=== PATIENT | male | born 1970 | race Caucasian/White ===

== ENCOUNTER 2016-06-18 09:38 | Emergency (ER) | payer OTHER, BC ==
[~2016-06-18] VITALS: Ht 180.3 cm; Wt 132.5 kg
[~2016-06-18 09:38] MED LIST: LISI-787 PO; OXYC-57 PO; TAMS0.4C38 PO
[2016-06-18 09:41] VITALS: TEMP 36.7; Ht 180.3 cm; Wt 132.5 kg
[2016-06-18] MEDS ORDERED: METH4PAK PO (10:29)
[2016-06-18] MEDS ORDERED: CYCL10TA6 PO (10:29)
[2016-06-18] MEDS ORDERED: OXYC1TAB3 PO (10:29)
--- NOTE | 2016-06-18 10:29 | EMERGENCY ROOM VISIT NOTE ---
History Report prepared by Joyce: Elvis Condon Under the Supervision of: Dr. Chava Mcclellan M.D. First contact with patient: 09:51 Chief Complaint: BACK PAIN Stated Complaint: LOWER BACK PAIN-WORK RELATED INJURY History of Present Illness The patient is a 45 year old male who presents to the Emergency Room with complaints of worsening lower back pain starting about 2 months ago. The patient has a history of back surgery occurring in 2008. About 2 months ago, he strained himself while running upstairs at work. He has been having worsening back pain since then. He also complains of left leg pain. He has worsening pain with lying down flat and with movement. He denies urinary/bowel incontinence, or any other complaints. Source of History: patient Onset: about 2 months ago Position: back (lower) Timing: worsening Modifying Factors (Worsening): movement, other (lying down flat) Review of Systems See HPI for pertinent positives & negatives. A total of 6 systems reviewed and were otherwise negative. Past Medical & Surgical Medical Problems: (1) Hypertension Surgical Problems: (1) History of back surgery Family History Diabetes mellitus FHx: heart disease Hypertension Kidney disease Social History Smoking Status: Never Smoker Alcohol Use: other Marital Status: Housing Status: lives with family Occupation Status: employed Current/Historical Medications Scheduled Cyclobenzaprine Hcl (Flexeril), 1 TAB PO TID Lisinopril/Hctz (Zestoretic 20MG/12.5MG), 1 TAB PO QAM Methylprednisolone (Medrol Dosepak), 1 PKT PO UD Scheduled PRN Oxycodone Immediate Rel Tab (Roxicodone Ir), 1-3 TAB PO Q4H PRN for Severe Pain Allergies Coded Allergies: Penicillins (Verified Allergy, Unknown, ITCHINESS, RASH, 06/18/16) Physical Exam Vital Signs Date Time Temp Pulse Resp B/P Pulse Ox O2 Delivery O2 Flow Rate FiO2 06/18/16 10:55 77 18 120/101 97 06/18/16 09:41 36.7 91 18 136/81 97 Room Air Physical Exam GENERAL: Patient is in mild distress, uncomfortable with sitting up HEENT: No acute trauma, normocephalic atraumatic, mucous membranes moist, no nasal congestion, no scleral icterus. NECK: No stridor, no adenopathy, no meningismus, trachea is midline. LUNGS: No dyspnea. Clear to auscultation and equal bilaterally. No wheeze, no rhonchi. HEART: Regular rate and rhythm. No murmurs, rubs, gallops appreciated. BACK: No midline tenderness, no CVA tenderness. Old surgical scar of lumbar. Back pain with raise of left leg. EXTREMITIES: Normal motion all extremities, no cyanosis, no edema. Normal pulses. NEUROLOGIC: Alert and oriented, no acute motor or sensory deficits, no focal weakness, cranial nerves grossly intact. SKIN: No rash, no jaundice, no diaphoresis. Medical Decision & Procedures ER Provider Diagnostic Interpretation: X ray results are stated below per my interpretation and the radiologist's interpretation. LUMBAR SPINE 3 VIEWS CLINICAL HISTORY: Left-sided sciatica. FINDINGS: AP, lateral, and coned-down views of lumbar spine are correlated with abdominal CT dated 10/10/2015. The skeletal structures are well mineralized. There is no radiographic evidence of fracture or malalignment. Vertebral body height and alignment are maintained throughout the lumbar spine. There is evidence of discectomy at L4-L5 with laminectomy and posterior fusion from L3 to L5. Interposition bone graft is noted. The orthopedic hardware appears intact. There is straightening of lumbar lordosis. There is loss of height at the L4-L5 discectomy level. The disc spaces are otherwise preserved. The transverse processes are intact as imaged. The partially visualized bony pelvis appears intact. There is a nonobstructed abdominal bowel gas pattern. IMPRESSION: 1. No acute bony abnormality is seen involving the lumbar spine. 2. Postoperative change as above. Electronically signed by: Abelino William M.D. 06/18/2016 10:29 AM Dictated Date/Time: 06/18/2016 10:27 AM ED Course 0951: The patient was evaluated in room B08. A complete history and physical exam was performed. 1045: Reevaluated the patient. Discussed results and discharge instructions: He verbalized understanding and agreement. The patient is ready for discharge. Medical Decision Differential: Musculoskeletal, Disc Herniation, Fracture, Cord Compression, Discitis, Infectious, Aortic Pathology, Renal Colic, UTI/Pyelonephritis, Acute Exacerbation of Chronic Pain, Sciatica, Cauda Equina, amongst other pathologies entertained. 45 yr old male arrives with complaint of low back pain gradually worsening over the last 2 months after trauma from jumping down stairs. History of surgery 7- 8 yrs ago of low back. Sciatica symptoms without neuro deficits nor loss bowel/ bladder. As acutely worsening last few days seems reasonable to try steroids. Tolerated narcotics in past well and understands risks. Flexeril for lesser pain. Has appointment with Spinal Surg on . Imaging without acute findings. RTED if worsening or other concerns that were reviewed with patient. [place] Drug Monitoring Program Search Results: patient reviewed within database Drug Monitoring Findings: He had 2 narcotic prescriptions 10 months ago. Impression Primary Impression: Strain of lumbar region Additional Impression: Left-sided low back pain with left-sided sciatica Scribe Attestation The scribe's documentation has been prepared under my direction and personally reviewed by me in its entirety. I confirm that the note above accurately reflects all work, treatment, procedures, and medical decision making performed by me. Departure Information Dispostion Home / Self-Care Prescriptions Cyclobenzaprine Hcl (FLEXERIL) 10 Mg Tab 1 TAB PO TID for Pain, #30 TAB Prov: Chava Mcclellan M.D. 06/18/16 Oxycodone Immediate Rel Tab (ROXICODONE IR) 5 Mg Tab 1-3 TAB PO Q4H Y for Severe Pain, #25 TAB Prov: Chava Mcclellan M.D. 06/18/16 Methylprednisolone (MEDROL DOSEPAK) 4 Mg Dominic 1 PKT PO UD for 6 Days, #1 PKT Prov: Chava Mcclellan M.D. 06/18/16 Referrals Ananda DuttonD.O. Forms HOME CARE DOCUMENTATION FORM, IMPORTANT VISIT INFORMATION Patient Instructions ED Sciatica, [facility] Additional Instructions You have received a narcotic pain medication prescription. These medications may cause drowsiness and should not be used with other sedative medications. Do not drive, drink alcohol, perform dangerous activities, nor make important decisions after taking these medications. behavioral therapy coordinator use or inappropriate use may lead to addiction. Problem Qualifiers Primary Impression: Strain of lumbar region Encounter type: initial encounter Qualified Codes: S39.012A - Strain of muscle, fascia and tendon of lower back, initial encounter Additional Impression: Left-sided low back pain with left-sided sciatica Chronicity: acute Qualified Codes: M54.42 - Lumbago with sciatica, left side
[2016-06-18 10:55] VITALS: BP 120/101; PULSE 77; O2SAT 97
[2016-07-09] MEDS ORDERED: OXYC1TAB3 PO (13:39)
[2016-07-13] MEDS ORDERED: RXC5 PO (07:27)
== END 2016-06-18 10:55 | disposition home or self-care (01) ==
LOC: C.EDB 09:40
DX: S39.012A Strain of muscle, fascia and tendon of lower back, initial encounter (principal); M54.42 Lumbago with sciatica, left side; X50.0XXA Overexertion from strenuous movement or load, initial encounter; Y99.0 Civilian activity done for income or pay; I10 Essential (primary) hypertension; Z83.3 Family history of diabetes mellitus; Z82.49 Family history of ischemic heart disease and other diseases of the circulatory system; Z79.899 Other long term (current) drug therapy

== ENCOUNTER → 2016-07-09 | Outpatient (CLI) | payer BC, OTHER ==
[~2016-07-09] MED LIST changes: +GLIP5TAB11 PO; +METF1000 PO; -OXYC-57 PO; +OXYC1TAB3 PO; +RXC5 PO; -TAMS0.4C38 PO
--- NOTE | 2016-07-09 09:50 | DIAGNOSTIC IMAGING REPORT ---
CHEST 2 VIEWS ROUTINE HISTORY: Preop. COMPARISON: Chest 01/17/2016. FINDINGS: The lungs are clear. Cardiac silhouette is normal in size. No pleural effusions. No pneumothorax. IMPRESSION: No acute process. Electronically signed by: Eddie Siddiqui M.D. 07/09/2016 9:49 AM Dictated Date/Time: 07/09/2016 9:48 AM
[2016-07-09 10:13] LABS: BASO % 0.4 %; BASO ABS # 0.03 K/uL (0-0.2); COMPLETE YES; EOS % 2.1 %; HEMATOCRIT 47.1 % (42-52); IG% 0.3 %; LYMPH % 29.8 %; LYMPH ABS # 2.17 K/uL (1.2-3.4); MEAN CELL VOLUME 83.2 fL (80-100); MEAN CORPUSCULAR HEMOGLOBIN 29.9 pg (25-34); MEAN CORPUSCULAR HGB CONC 35.9 g/dl (32-36); MEAN PLATELET VOLUME 10.9 fL (7.4-10.4); MONO % 8.5 %; NEUT % 58.9 %; PLATELET COUNT 237 K/uL (130-400); RED BLOOD COUNT 5.66 M/uL (4.7-6.1); WHITE BLOOD COUNT 7.29 K/uL (4.8-10.8)
[2016-07-09 10:19] LABS: BLOOD UREA NITROGEN 15 mg/dl (7-18); BUN/CREATININE RATIO 13.6 (10-20); CALCIUM 9.8 mg/dl (8.5-10.1); CARBON DIOXIDE 29 mmol/L (21-32); CHLORIDE 99 mmol/L (98-107); GLUCOSE 316 mg/dl (70-99); POTASSIUM 4.1 mmol/L (3.5-5.1); SODIUM 137 mmol/L (136-145)
[2016-07-09 10:29] LABS: BETA-HYDROXYBUTYRATE 1.36 mg/dL (0.2-2.81)
[2016-07-09 12:11] LABS: URINE APPEARANCE CLEAR (CLEAR); URINE BILIRUBIN NEG (NEG); URINE COLOR YELLOW; URINE EPITHELIAL CELL AUTO 0-5 /lpf (0-5); URINE NITRITE NEG (NEG); URINE PH 5.5 (4.5-7.5); URINE SPECIFIC GRAVITY 1.031 (1.000-1.030); UROBILINOGEN NEG (NEG)
[2016-07-09 12:16] LABS: MANUAL MICROSCOPIC REQUIRED? NO; REVIEW REQ? NO
== END | disposition home or self-care (01) ==
LOC: C.LAB 08:52
PROVIDERS: ATTEND Orthopaedic Surgery Orthopaedic Surgery of the Spine
DX: M51.26 Other intervertebral disc displacement, lumbar region (principal)

== ENCOUNTER 2016-07-12 08:08 | Inpatient (IN) | payer OTHER, BC ==
[2016-07-09 13:30] VITALS: BMI 39.0
[~2016-07-12] VITALS: Ht 180.3 cm; Wt 129.6 kg
--- NOTE | 2016-07-12 07:28 | History & Physical Bridge Note ---
H&P Re-Evaluation Bridge Note: I have examined the patient, reviewed the History & Physical and in the interval since the performance of the History & Physical I have noted the following changes of clinical significance: No changes noted
[~2016-07-12 08:08] MED LIST changes: +CEFAZOLIN 3000 MG/65 ML D5W IV SCH; -GLIP5TAB11 PO; -METF1000 PO; -RXC5 PO
[2016-07-12 08:59] VITALS: BP 125/87; PULSE 90; TEMP 36.8; BMI 39.0
[2016-07-12] MEDS ORDERED: GLYCOPYRROLATE INJ 0.2 MG/ML VIAL ONE (09:04)
[2016-07-12] MEDS ORDERED: PHENYLEPHRINE HCL INJ 10 MG/ML VIAL ONE (09:04)
[2016-07-12] MEDS ORDERED: ROCURONIUM BROMIDE 10 MG/ML 5 ML VIAL ONE ×2 (09:04→11:26)
[2016-07-12] MEDS ORDERED: MIDAZOLAM HCL 1 MG/ML 2ML VIAL ONE (09:04)
[2016-07-12] MEDS ORDERED: PROPOFOL IV EMULSION 10 MG/ML 20 ML VIAL IV ONE (09:04)
[2016-07-12] MEDS ORDERED: LIDOCAINE HCL 2% 2 ML VIAL (20MG/ML) ONE (09:04)
[2016-07-12] MEDS ORDERED: DEXAMETHASONE SOD INJ 4 MG/ML VIAL ONE (09:04)
[2016-07-12] MEDS ORDERED: FENTANYL CITRATE INJ 50 MCG/1 ML 2 ML VIAL ONE (09:04)
[2016-07-12] MEDS ORDERED: ONDANSETRON INJ 2 MG/ML 2 ML VIAL ONE (09:04)
[2016-07-12] MEDS ORDERED: EpHEDrine SULFATE INJ 50 MG/ML AMP ONE (09:04)
[2016-07-12] MEDS ORDERED: SUCCINYLCHOLINE CHLORIDE 20 MG/ML 10 ML VIAL IV ONE (09:04)
[2016-07-12] MEDS ORDERED: NEOSTIGMINE METHYLSULFATE 5 MG/5 ML SYR ONE (09:04)
--- NOTE | 2016-07-12 09:29 | History and Physical ---
History & Physical Date Jul 12, 2016. Chief Complaint back and leg pain History of Present Illness The patient is a 45 year old male with complaints of Past Medical/Surgical History Medical Problems: (1) Hypertension Surgical Problems: (1) History of back surgery Additional History Hepatic Disease: No Endocrine Disorder: No Kidney Disease: No Hypertension: No Heart Disease: No Bleeding Tendencies: No Infectious Diseases: No Allergies Coded Allergies: Penicillins (Verified Allergy, Intermediate, ITCHINESS, RASH, 07/12/16) Home Medications Scheduled Lisinopril/Hctz (Zestoretic 20MG/12.5MG), 1 TAB PO QAM Scheduled PRN Oxycodone Ir (Roxicodone Ir), 5 MG PO Q4H PRN for Severe Pain Physical Examination Skin: warm/dry, no rash Eyes: normal inspection, EOMI, sclerae normal ENT: normal ENT inspection, pharynx normal Head: normocephalic, atraumatic Neck: supple, no adenopathy, trachea midline Respiratory/Chest: lungs clear, normal breath sounds, no respiratory distress Cardiovascular: regular rate, rhythm, no edema, no murmur Abdomen / GI: normal bowel sounds, non tender Back: normal inspection Extremities: normal inspection, normal range of motion Neurologic/Psych: no motor/sensory deficits, alert, normal reflexes, oriented x 3 Diagnosis lumbar stenosis Plan of Treatment removal instrumentation L3-L5, fusion decompression L3-4
[2016-07-12] MEDS ORDERED: NovoLIN-R INSULIN PER UNIT CHARGE ONE ×6 (09:41→15:27)
[2016-07-12] MEDS ORDERED: MoRPHine SULFATE 10 MG/ML CARP/VIAL IV PRN (09:45)
[2016-07-12] MEDS ORDERED: INSULIN HUMAN REGULAR IV ONE ×3 (09:45→13:45)
[2016-07-12] MEDS ORDERED: MEPERIDINE HCL 25 MG/ML CARP IV PRN (09:45)
[2016-07-12] MEDS ORDERED: ATROPINE SULFATE 0.1 MG/ML 5ML SYR IV PRN (09:45)
[2016-07-12] MEDS ORDERED: LABETALOL HCL IV 5 MG/ML 20ML IV PRN (09:45)
[2016-07-12] MEDS ORDERED: NALOXONE HCL 0.4 MG/1 ML VIAL/CARP IV PRN ×3 (09:45→12:45)
[2016-07-12] MEDS ORDERED: FLUMAZENIL 0.1 MG/1 ML 10 ML VIAL IV PRN (09:45)
[2016-07-12] MEDS ORDERED: ONDANSETRON INJ 2 MG/ML 2 ML VIAL IV PRN ×2 (09:45→12:45)
[2016-07-12] MEDS ORDERED: EpHEDrine SULFATE INJ 50 MG/ML AMP IV PRN (09:45)
[2016-07-12] MEDS ORDERED: PHENYLEPHRINE 100MCG/ML 5ML SYR IV PRN (09:45)
[2016-07-12] MEDS ORDERED: BUPIVACAINE/EPINEPHRINE 0.5% MPF 1:200,000 30 ML VIAL ONE (09:49)
[2016-07-12] MEDS ORDERED: BACITRACIN 50000 UNIT VIAL ONE (09:49)
[2016-07-12] MEDS ORDERED: SODIUM CHLORIDE 0.9% PF 50 ML VIAL ONE (09:49)
[2016-07-12] MEDS ORDERED: SCOPOLAMINE 1.5 MG TDSY TD ONE (09:53)
[2016-07-12] MEDS ORDERED: NURSING VERBAL MED ORDER ONE ×3 (10:00→15:30)
[2016-07-12] MEDS ORDERED: HYDROmorphone INJ 2 MG/ML SYR/VIAL ONE (10:29)
[2016-07-12] MEDS ORDERED: FLOSEAL HEMOSTATIC MATRIX 10ML TOP ONE (12:07)
--- NOTE | 2016-07-12 12:18 | DIAGNOSTIC IMAGING REPORT ---
Lumbar spine LUMBAR SPINE 2 OR 3 VIEW CLINICAL HISTORY: L3-L5 REMOVAL/L3-L4 DECOMPRESSION/FUSION hardware removal. Laminectomy. Fusion. TECHNIQUE: Image intensifier COMPARISON STUDY: None FINDINGS: Findings of the low lumbar laminectomy and fusion. IMPRESSION: Low lumbar laminectomy and fusion. Electronically signed by: Nabor Ospina M.D. 07/12/2016 12:16 PM Dictated Date/Time: 07/12/2016 12:16 PM
[2016-07-12] MEDS ORDERED: SODIUM CHLORIDE 0.9% 1000ML 1,000 ML IV SCH (12:33)
--- NOTE | 2016-07-12 12:33 | [facility] Post Operative Brief Note ---
Immediate Operative Summary Operative Date Jul 12, 2016. Pre-Operative Diagnosis Lumbar stenosis Post-Operative Diagnosis Same as pre-operative diagnosis Procedure(s) Performed Transforaminal Lumbar Interbody Fusion L3-L4 Lumbar Decompression/Laminectomy, Discectomy, Placement of Interbody Spacer, Pedicle Screw Fixation, Application of Bone Morphogenetic Protein, and Posteriolateral Gutter Fusion, L3-L5 Hardware Removal, Interbody Fusion with Application of Interbody Cage L3-L4; [place] Surgeon Dr. Ananda Dutton Utility Bill Complaints Investigator Surgeon(s) None Estimated Blood Loss 100ml Findings stenosis Specimens A: Explanted hardware lumbar spine L3-5
[2016-07-12] MEDS ORDERED: FAMOTIDINE 20 MG TAB PO PRN (12:45)
[2016-07-12] MEDS ORDERED: METOCLOPRAMIDE HCL INJ 5 MG/ML 2 ML VIAL IV PRN (12:45)
[2016-07-12] MEDS ORDERED: DO NOT ADMINISTER PNEUMOCOCCAL VACCINE PRN ×2 (12:45)
[2016-07-12] MEDS ORDERED: SOD PHOSPHATE/SOD BIPHOSPHATE ENEMA 132 ML BTL PR PRN (12:45)
[2016-07-12] MEDS ORDERED: DO NOT ADMINISTER FLU VACCINE PRN ×3 (12:45)
[2016-07-12] MEDS ORDERED: PROMETHAZINE HCL INJ 12.5 MG in SODIUM CHLORIDE 0.9% 50ML 50 ML IV PRN (12:45)
[2016-07-12] MEDS ORDERED: hydrOXYzine HCL 25 MG TAB PO PRN (12:45)
[2016-07-12] MEDS ORDERED: ALUMINUM/MAGNESIUM SUSP 30 ML UDC PO PRN (12:45)
[2016-07-12] MEDS ORDERED: LORAZEPAM INJ 0.5 MG in SYRINGE 0 ML IV PRN (12:45)
[2016-07-12] MEDS ORDERED: LORAZEPAM 0.5 MG TAB PO PRN (12:45)
[2016-07-12] MEDS ORDERED: MAGNESIUM HYDROXIDE SUSP 30 ML UDC PO PRN (12:45)
[2016-07-12] MEDS ORDERED: ACETAMINOPHEN IV 100 ML IV PRN (12:45)
[2016-07-12] MEDS ORDERED: BISACODYL 10 MG SUPP PR PRN (12:45)
[2016-07-12] MEDS ORDERED: ACETAMINOPHEN 500 MG TAB PO PRN (12:45)
--- NOTE | 2016-07-12 13:02 | OPERATIVE REPORT ---
DATE OF OPERATION: 07/12/2016 PREOPERATIVE DIAGNOSES: Spinal stenosis and nonunion, L3-L4. POSTOPERATIVE DIAGNOSES: Same. PROCEDURES PERFORMED: 1. Removal of posterior segmental instrumentation, L3-L4 and L4-L5. 2. Exploration of fusion, L3-L4 and L4-L5. 3. Revision decompression, medial facetectomies, and foraminotomies, L3-L4. 4. Posterior spinal fusion, L3-L4. 5. Placement of posterior instrumentation using Orthros rods and screws, L3-L4. 6. Interbody fusion, L3-L4. 7. Placement of PEEK cage, 14 x 26 mm at L3-L4. 8. Placement of locally harvested morselized autograft in the posterior gutters. 9. Placement of Infuse collagen sponge combined with Mastergraft in the posterior gutters and Ann bone grafting in the interbody space. SURGEON: Dr. Ananda Dutton. NUT SHELLER: None. ANESTHESIA: General. DISPOSITION: The patient awakened and taken to PACU in stable condition. HISTORY OF PATIENT'S PROBLEMS: This is a 45-year-old male who presents with above-mentioned diagnoses. After failing an extensive course of nonoperative care, he elected to go above-mentioned procedures. Risks, benefits, pros, cons, and alternatives were outlined in detail preoperatively. DESCRIPTION OF PROCEDURE: The patient was met with preoperatively, case discussed and all questions were addressed. At that point, the patient was taken back to operative suite and after undergoing successful general intubation by the department of anesthesia, he was placed in prone position on Bob table atop Eric frame. All bony prominences were well padded and the eyes were inspected to ensure there was no external pressure placed upon them. At this point, lumbar spine was prepped and draped in normal sterile fashion. Sharp dissection with the assistance of Bovie cautery performed down to and exposing the remaining lamina and instrumentation at L3, L4, and L5 level bilaterally. I then proceeded to remove the hardware bilaterally exploring the fusion mass noting continue motion across L3-L4 level. There was a solid fusion at the L4-L5 level. Revision complete laminectomy of L3 was performed including medial facetectomies and foraminotomies. Pedicle screws then placed in L3 and L4 bilaterally with assistance of fluoroscopy and appropriately sized vince provisionally placed. Through a transforaminal approach on the left, a complete diskectomy was performed, endplates curetted to subcortical bleeding bone and a 14 x 26 mm PEEK cage filled with Ann bone grafting tapped into position. The rods were then compressed, locked into final position bilaterally and transverse processes of L3-L4 burred to subcortical bleeding bone. Infuse collagen sponge combined with Mastergraft and locally harvested morselized autograft was placed in the posterior lateral gutters. A 7 flat ZACH drain was inserted. Incision was closed with 1-0 Vicryl in the fascia, 2-0 Vicryl subcutaneously, and 4-0 Monocryl for final skin closure. Steri-Strips and sterile dressing placed. The patient was awakened and taken to PACU in stable condition. I attest to the content of the Intraoperative Record and any orders documented therein. Any exceptio ns are noted below.
[2016-07-12] MEDS ORDERED: HYDROmorphone HCL 0.5MG/ML 50 ML CASSETTE ONE (13:10)
[2016-07-12] MEDS: HYDROmorphone INJ 1 MG/ML SYR IV PRN ×2 (13:15→13:35)
--- NOTE | 2016-07-12 15:52 | Anesthesiology Progress Note ---
Anesthesia Post Op Note Date & Time Jul 12, 2016 at 15:46 Vital Signs Pain Intensity: 4 Vital Signs Past 12 Hours Date Time Temp Pulse Resp B/P Pulse Ox O2 Delivery O2 Flow Rate FiO2 07/12/16 15:20 86 16 89/48 94 Nasal Cannula 4 07/12/16 15:10 36.4 87 16 78/45 93 Nasal Cannula 4 07/12/16 15:00 84 17 92/50 93 Nasal Cannula 4 07/12/16 14:50 90 18 88/47 93 Nasal Cannula 4 07/12/16 14:40 83 19 85/46 93 Nasal Cannula 4 07/12/16 14:30 95 18 93/43 93 Nasal Cannula 4 07/12/16 14:20 82 18 91/43 93 Nasal Cannula 4 07/12/16 14:10 92 19 97/47 93 Nasal Cannula 4 07/12/16 14:00 74 17 92/47 94 Nasal Cannula 4 07/12/16 13:50 76 17 90/47 94 Nasal Cannula 4 07/12/16 13:40 87 18 103/49 94 Nasal Cannula 4 07/12/16 13:30 69 18 101/50 92 Nasal Cannula 4 07/12/16 13:20 77 19 101/50 96 Mask 10 07/12/16 13:10 81 18 106/50 98 Mask 10 07/12/16 13:00 76 18 101/47 98 Mask 10 07/12/16 12:54 36.3 87 16 92/54 98 Mask 10 07/12/16 08:59 36.8 90 18 125/87 Room Air Notes Mental Status: alert / awake / arousable, participated in evaluation Pt Amnestic to Procedure: Yes Nausea / Vomiting: adequately controlled Pain: adequately controlled Airway Patency, RR, SpO2: stable & adequate BP & HR: stable & adequate, see Notes Hydration State: stable & adequate Anesthetic Complications: no major complications apparent The patient was noted to have a BSG of 293 preoperatively. He was given 5 unit regular insulin IV. The patient's BSG was checked intraoperatively and found to be 256. He was given another six units regular insulin IV. In the PACU, his first BSG was 301. He was given 8 units regular insulin IV. On recheck it was 298. He was given 10 units regular insulin IV. The following BSG was 302. He was given 15 units regular insulin IV. The following BSG was 305. He was given another 15 units IV. The patient was slightly hypotensive with SBP in the 80-90s. His other vital signs have been stable. An H/H, hgba1c, and electrolytes were ordered. Dr. Hennessy came to evaluate the patient and will continue to treat his hyperglycemia on the floor.
[2016-07-12 15:55] LABS: HEMATOCRIT 38.6 % (42-52)
[2016-07-12] MEDS ORDERED: GLUCOSE 10 TABS/TUBE PO PRN (16:00)
[2016-07-12] MEDS ORDERED: DEXTROSE 50% 50 ML SYR IV PRN (16:00)
[2016-07-12] MEDS ORDERED: GLUCOSE 40% GEL 15 GM TUBE PO PRN (16:00)
[2016-07-12] MEDS ORDERED: GLUCAGON FOR INJ 1 MG VIAL SQ PRN (16:00)
[2016-07-12] MEDS ORDERED: PHARMACY GLYCEMIC MGMT CONSULT SCH (16:09)
[2016-07-12 16:17] LABS: CALCIUM 8.5 mg/dl (8.5-10.1); CREATININE 1.9 mg/dl (0.60-1.40); POTASSIUM 3.5 mmol/L (3.5-5.1)
[2016-07-12] MEDS ORDERED: PHARMACY GLYCEMIC MGMT CONSULT STA (16:26)
--- NOTE | 2016-07-12 16:30 | Pharmacy Progress Note ---
Glycemic Control Intl Consult Date of Service Jul 12, 2016. Scope Glycemic Pharmacist consulted by Dr Hennessy on 07/12/16 for glycemic control and to write orders per [facility] inpatient glycemic control protocol Objective Weight (Kilograms): 129.55 Accuchecks BSG (last 24hrs): Test 07/12/16 09:13 07/12/16 11:42 07/12/16 12:54 07/12/16 14:03 Bedside Glucose 293 mg/dl (70-99) 256 mg/dl (70-99) 301 mg/dl (70-99) 298 mg/dl (70-99) Test 07/12/16 14:37 07/12/16 15:14 07/12/16 15:45 Bedside Glucose 302 mg/dl (70-99) 305 mg/dl (70-99) Recent Pertinent Medications Outpatient Anti-diabetic Regimen: * none * A1c = pending The patient is currently receiving: * Regular insulin - a total of 44 units IV in PACU/OR Today for BSGs as above Risk Factors for Insulin Resistance: * Steroids: Dexamethasone 4mg IV in OR, and 6mg IV Q8H x 3 doses post op * Infection: Clindamycin post op x 24 hours * Recent Surgery: S/p lumbar fusion 07/12/16 * Diet: Regular Assessment & Plan ASSESSMENT: * 45 year old male, no previous diagnosis of DM or A1c, admitted for lumbar fusion, experiencing hyperglycemia in PACU and OR, treated with a total of 44 units of IV regular insulin over the past 8 hours, with blood sugars in the 293- 305mg/dL range * Patient on IV steroids which is likely the biggest contributor to hyperglycemia, will start patient on a weight based CF and CR, and check blood sugars twice overnight as IV steroids are ATC * Also give patient a one time Lantus dose today and follow-up tomorrow with further Lantus dosing, depending on BSGs and A1c. * Patient diet is currently ordered as regular, may need to adjust to Type 2 DM diet depending on A1c and carbs consumed. * ADA & AACE recommend a goal blood sugar range 140-180 mg/dl for the majority of critically ill & non-critically ill patients. However, more stringent targets may be selected in individual cases. I will start patient on a 120-160mg /dl goal range for a young patient with no previous diagnosis of DM. This can be further tightened tomorrow to 100-140mg/dl after we see how patient responds to insulin, as he is insulin naive. PLAN FOR INPATIENT GLYCEMIC CONTROL: * Basal insulin with LANTUS 15 units SQ x 1 NOW * Correctional Insulin with NOVOLOG per scale ACHS and at 00:00 and 04:00 overnight tonight * Goal Range: Low 120 mg/dL - High 160 mg/dL * Correction Factor: 18 mg/dL/unit * Nutritional / Prandial insulin per carb ratio of 1 unit per 6 grams CHO consumed * If blood sugar remains over 300mg/dL at 2100 - will give IV insulin and tighten CF and CR further * Please note that the plan above was derived based on current level of insulin resistance and hospital stress. These recommendations are appropriate for inpatient admission only. Plan of care upon discharge will need to be reassessed to avoid potential outpatient hypo/hyperglycemia. Thank you.
[2016-07-12 16:40] LABS: BETA-HYDROXYBUTYRATE 1.26 mg/dL (0.2-2.81)
[2016-07-12] MEDS ORDERED: INSULIN GLARGINE SOLOSTAR 100 UNITS/ML 3 ML PEN SC SCH (17:00)
[2016-07-12 17:55] VITALS: O2SAT 97
[2016-07-12] MEDS: HYDROmorphone HCL 0.5MG/ML 50 ML CASSETTE IV PRN ×2 (17:58→23:12)
[2016-07-12 18:25] VITALS: BP 103/63; PULSE 95; TEMP 36.4; O2SAT 100
[2016-07-12] MEDS: SODIUM CHLORIDE 0.9% 1000ML 1,000 ML IV SCH ×2 (19:01→19:10)
[2016-07-12] MEDS: INSULIN ASPART 100 UNITS/ML 3 ML PEN SC SCH ×2 (19:34→21:11)
[2016-07-12 19:43] VITALS: BP 117/73; PULSE 98; TEMP 36.3; O2SAT 99
--- NOTE | 2016-07-12 20:55 | Medical Consult ---
Consultation Date of Consultation: Jul 12, 2016. Attending Physician: Ananda Dutton D.O. Reason for Consultation: Hyperglycemia, post op hypotension History of Present Illness Pt admitted to orthopedic service for lumbar surgery and consulted to our services for hyperglycemia Pt noted to have glucose readings in 300s. Pt did undergo surgery and also did receive decadron. No hx of DM but pt reports parents and grandparents all had it. Pt denies any neuropathy, weakness but does state he drinks up to 4 quarts of water a night and does have polyuria. Pt only has hx of HTN. Past Medical/Surgical History Medical Problems: (1) Left-sided low back pain with left-sided sciatica Status: Acute (2) Strain of lumbar region Status: Acute Family History Diabetes mellitus FHx: heart disease Hypertension Kidney disease Social History Smoking Status: Never Smoker Marital Status: Housing Status: lives with family Occupation Status: employed Allergies Coded Allergies: Penicillins (Verified Allergy, Intermediate, ITCHINESS, RASH, 07/12/16) Current Inpatient Medications Current Inpatient Medications Medications (Trade) Dose Ordered Sig/Aki Route Start Time Stop Time Status Last Admin Dose Admin Hydromorphone HCl 0.5 mg 0.5 mg Q5M PRN IV 07/12/16 09:45 07/13/16 14:45 07/12/16 13:35 0.5 MG Clindamycin Phosphate 600 mg/ Dextrose 54 ml @ 100 mls/hr Q8H IV 07/12/16 20:00 07/13/16 04:33 Dexamethasone Sodium Phosphate 6 mg/Syringe 1.5 ml @ 1 mls/min Q8H IV 07/12/16 20:00 07/13/16 12:02 Promethazine HCl/ Sodium Chloride (Phenergan Inj/ Nss 50ml) 50.5 ml @ 202 mls/hr Q6H PRN IV 07/12/16 12:45 08/11/16 12:44 Ondansetron HCl (Zofran Inj) 4 mg Q6H PRN IV 07/12/16 12:45 08/11/16 12:44 Metoclopramide HCl (Reglan Inj) 10 mg Q6H PRN IV 07/12/16 12:45 08/11/16 12:44 Lorazepam 0.5 mg 0.5 mg Q8H PRN PO 07/12/16 12:45 08/11/16 12:44 Lorazepam/Syringe (Ativan Inj/ Syringe) 0.25 ml @ 1 mls/min Q8H PRN IV 07/12/16 12:45 08/11/16 12:44 Pneumococcal Polysaccharide Vaccine 1 ea PRN PRN N/A 07/12/16 12:45 08/11/16 12:44 Influenza Virus Vacc Triv Types A&B 1 ea PRN PRN N/A 07/12/16 12:45 08/11/16 12:44 Polyethylene (Miralax Powder Packet) 17 gm Q6 PO 07/14/16 06:00 08/13/16 05:59 Bisacodyl (Dulcolax Supp) 10 mg DAILY PRN HI 07/12/16 12:45 08/11/16 12:44 Magnesium Hydroxide (Milk Of Magnesia Susp) 30 ml DAILY PRN PO 07/12/16 12:45 08/11/16 12:44 Hydromorphone HCl (Dilaudid Inj) 0.5 mg Q3H PRN IV 07/13/16 06:00 07/27/16 05:59 Oxycodone HCl 5-10mg prn moderate to sev... Q4H PRN PO 07/13/16 06:00 07/27/16 05:59 Sodium Chloride (Nss 1000ml) 1,000 ml @ 150 mls/hr Q6H40M IV 07/12/16 12:33 08/11/16 12:32 07/12/16 19:10 150 MLS/HR Acetaminophen 1000 mg 1,000 mg Q8H PRN PO 07/12/16 12:45 08/11/16 12:44 Acetaminophen (Ofirmev Iv) 100 ml @ 400 mls/hr Q8H PRN IV 07/12/16 12:45 08/11/16 12:44 Naloxone HCl (Narcan Inj) 0.1 mg Q5M PRN IV 07/12/16 12:45 08/11/16 12:44 Senna/Docusate Sodium (Senokot S Tab) 2 tab HS PO 07/12/16 21:00 08/11/16 20:59 Sodium Biphosphate/ Sodium Phosphate (Fleet Enema) 132 ml ONE PRN HI 07/12/16 12:45 08/11/16 12:44 Hydroxyzine HCl (Vistaril Tab) 25 mg Q8H PRN PO 07/12/16 12:45 08/11/16 12:44 Al Hydroxide/Mg Hydroxide (Maalox Susp) 30 ml Q6H PRN PO 07/12/16 12:45 08/11/16 12:44 Famotidine (Pepcid Tab) 20 mg Q12 PRN PO 07/12/16 12:45 08/11/16 12:44 Diphenhydramine HCl (Benadryl Cap) 25 mg Q6H PRN PO 07/12/16 12:45 08/11/16 12:44 Miscellaneous Information (Discontinue CRYSTAL GRINDER) 1 ea TODAY@0600 N/A 07/13/16 06:00 07/13/16 06:01 Naloxone HCl (Narcan Inj) 0.1 mg Q5M PRN IV 07/12/16 12:45 07/13/16 06:00 Hydromorphone HCl 25 mg 25 mg PRN PRN IV 07/12/16 12:45 07/13/16 06:00 07/12/16 17:58 25 MG Sodium Chloride (Nss 1000ml) 1,000 ml @ 15 mls/hr Q24H IV 07/12/16 12:33 07/13/16 06:00 HCTZ/Lisinopril (Prinzide 20-12.5MG Tab) 1 tab QAM PO 07/13/16 09:00 08/12/16 08:59 Future Hold Hydromorphone HCl (Dilaudid Inj) 1 mg Q3H PRN IV 07/13/16 06:00 07/27/16 05:59 Insulin Aspart (novoLOG ASPART) SLIDING SCALE If C... ACHS SC 07/12/16 17:00 08/11/16 16:59 07/12/16 19:34 13 UNITS Glucose (Glucose 40% Gel) 15-30 GRAMS 15 GRAMS... UD PRN PO 07/12/16 16:00 08/11/16 15:59 Glucose (Glucose Chew Tab) 4-8 Tablets 4 Tabl... UD PRN PO 07/12/16 16:00 08/11/16 15:59 Dextrose (Dextrose 50% 50ML Syringe) 25-50ML OF 50% DW IV FOR... UD PRN IV 07/12/16 16:00 08/11/16 15:59 Glucagon (Glucagon Inj) 1 mg UD PRN SQ 07/12/16 16:00 08/11/16 15:59 Miscellaneous Information (Consult Glycemic Management Pharmacy) 1 ea UD N/A 07/12/16 16:09 08/11/16 16:08 Insulin Aspart (novoLOG ASPART) SLIDING SCALE If C... 0000,0400 SC 07/13/16 00:00 08/12/16 00:00 Review of Systems Constitutional: No chills, No fever Respiratory: No cough, No sputum Cardiovascular: No chest pain, No orthopnea Abdomen: No nausea, No pain, No vomiting Musculoskeletal: No joint pain, No muscle pain Genitourinary - Male: No dysuria, No hematuria Neurologic: No paralysis, No weakness Physical Exam Date Time Temp Pulse Resp B/P Pulse Ox O2 Delivery O2 Flow Rate FiO2 07/12/16 19:43 36.3 98 20 117/73 99 Nasal Cannula 4.0 07/12/16 18:25 36.4 95 18 103/63 100 Nasal Cannula 4.0 07/12/16 17:55 97 Nasal Cannula 4.0 07/12/16 17:55 Nasal Cannula 4.0 07/12/16 17:45 90 13 102/63 96 Nasal Cannula 4 07/12/16 17:30 84 13 109/61 95 Nasal Cannula 4 07/12/16 17:15 80 18 107/61 95 Nasal Cannula 4 07/12/16 17:00 76 20 90/57 95 Nasal Cannula 4 07/12/16 16:45 36.2 93 16 104/57 95 Nasal Cannula 4 07/12/16 16:30 89 16 98/53 95 Nasal Cannula 4 07/12/16 16:20 99 21 94/53 94 Nasal Cannula 4 07/12/16 16:10 91 16 100/55 95 Nasal Cannula 4 07/12/16 16:00 98 17 106/49 95 Nasal Cannula 4 07/12/16 15:50 101 23 97/44 93 Nasal Cannula 4 07/12/16 15:40 100 17 94/47 95 Nasal Cannula 4 07/12/16 15:30 79 18 93/54 93 Nasal Cannula 4 07/12/16 15:20 86 16 89/48 94 Nasal Cannula 4 07/12/16 15:10 36.4 87 16 78/45 93 Nasal Cannula 4 07/12/16 15:00 84 17 92/50 93 Nasal Cannula 4 07/12/16 14:50 90 18 88/47 93 Nasal Cannula 4 07/12/16 14:40 83 19 85/46 93 Nasal Cannula 4 07/12/16 14:30 95 18 93/43 93 Nasal Cannula 4 07/12/16 14:20 82 18 91/43 93 Nasal Cannula 4 07/12/16 14:10 92 19 97/47 93 Nasal Cannula 4 07/12/16 14:00 74 17 92/47 94 Nasal Cannula 4 07/12/16 13:50 76 17 90/47 94 Nasal Cannula 4 07/12/16 13:40 87 18 103/49 94 Nasal Cannula 4 07/12/16 13:30 69 18 101/50 92 Nasal Cannula 4 07/12/16 13:20 77 19 101/50 96 Mask 10 07/12/16 13:10 81 18 106/50 98 Mask 10 07/12/16 13:00 76 18 101/47 98 Mask 10 07/12/16 12:54 36.3 87 16 92/54 98 Mask 10 07/12/16 08:59 36.8 90 18 125/87 Room Air General Appearance: WD/WN, no apparent distress Neck: supple, no adenopathy Respiratory/Chest: lungs clear, normal breath sounds Cardiovascular: no gallop, no JVD Abdomen/GI: non tender, soft Neurologic/Psych: alert, oriented x 3 Laboratory Results Last 24 Hours Test 07/12/16 09:13 07/12/16 11:42 07/12/16 12:54 07/12/16 14:03 Bedside Glucose 293 mg/dl 256 mg/dl 301 mg/dl 298 mg/dl Test 07/12/16 14:37 07/12/16 15:14 07/12/16 15:45 07/12/16 15:48 Bedside Glucose 302 mg/dl 305 mg/dl Hemoglobin 13.5 g/dL Hematocrit 38.6 % Sodium Level 138 mmol/L Potassium Level 3.5 mmol/L Chloride Level 103 mmol/L Carbon Dioxide Level 26 mmol/L Anion Gap 9.0 mmol/L Blood Urea Nitrogen 19 mg/dl Creatinine 1.90 mg/dl Est Creatinine Clear Calc Drug Dose 67.3 ml/min Estimated GFR () 48.3 Estimated GFR (Non- 41.6 BUN/Creatinine Ratio 10.0 Random Glucose 309 mg/dl Calcium Level 8.5 mg/dl Beta-Hydroxybutyric Acid 1.26 mg/dL Test 07/12/16 18:16 Bedside Glucose 301 mg/dl Assessment & Plan Pt is a 45 s/p lumbar surgery consulted to our services for hypotension and hyperglycemia Hypotension s/p surgery likely from volume depletion, improved with fluid resuscitation. Cont to monitor VS at this time Hyperglycemia could be from stress induced state from surgery in addition to decadron. Will get HgA1c as pt reports polydypsia and polyuria. Cont ISS. Pharmacy glycemic consult in place HTN - Hypotensive at this time. Hold home meds Pt is FULL CODE
[2016-07-12] MEDS: CLINDAMYCIN IV 600 MG in DEXTROSE 5% ADD-VANTAGE 50ML 50 ML IV SCH (21:08)
[2016-07-12] MEDS: DEXAMETHASONE INJ 6 MG in SYRINGE 0 ML IV SCH (21:08)
[2016-07-12] MEDS: DOCUSATE SODIUM/SENNA 50/8.6MG TAB PO SCH (21:19)
[2016-07-12 22:29] VITALS: BP 122/76; PULSE 98; TEMP 36.9; O2SAT 97
[2016-07-13] VITALS (10 sets, daily range): BP systolic 105–146; BP diastolic 63–77; PULSE 64–95; TEMP 36.5–37.1; O2SAT 92–96; Ht 180.3 cm; Wt 129.6 kg
[2016-07-13] MEDS: INSULIN ASPART 100 UNITS/ML 3 ML PEN SC SCH ×6 (00:20→21:20)
[2016-07-13] MEDS: SODIUM CHLORIDE 0.9% 1000ML 1,000 ML IV SCH ×2 (01:53→08:33)
[2016-07-13] MEDS: DEXAMETHASONE INJ 6 MG in SYRINGE 0 ML IV SCH ×2 (04:08→12:10)
[2016-07-13] MEDS: CLINDAMYCIN IV 600 MG in DEXTROSE 5% ADD-VANTAGE 50ML 50 ML IV SCH (04:08)
[2016-07-13] MEDS ORDERED: DC PCA SCH (06:00)
[2016-07-13] MEDS ORDERED: HYDROmorphone INJ 0.5 MG/0.5 ML SYR IV PRN (06:00)
[2016-07-13] MEDS ORDERED: OXYCODONE HCL IR 5 MG TAB (IMMEDIATE RELEASE) PO PRN (06:00)
[2016-07-13] MEDS ORDERED: HYDROmorphone INJ 1 MG/ML SYR IV PRN (06:00)
[2016-07-13] MEDS ORDERED: LACTATED RINGER'S 1000ML 1,000 ML IV SCH (06:00)
[2016-07-13 06:12] LABS: COMPLETE YES; EOS % 0.1 %; HEMATOCRIT 38.1 % (42-52); IG% 0.3 %; LYMPH % 9.9 %; LYMPH ABS # 1.14 K/uL (1.2-3.4); MEAN CELL VOLUME 82.8 fL (80-100); MEAN CORPUSCULAR HEMOGLOBIN 29.3 pg (25-34); MEAN CORPUSCULAR HGB CONC 35.4 g/dl (32-36); MEAN PLATELET VOLUME 10.8 fL (7.4-10.4); MONO % 3.7 %; PLATELET COUNT 210 K/uL (130-400); WHITE BLOOD COUNT 11.48 K/uL (4.8-10.8)
[2016-07-13 06:29] LABS: ESTIMATED AVERAGE GLUCOSE 275 mg/dl; HA1C FLAG Normal (Normal)
[2016-07-13 06:53] LABS: BUN/CREATININE RATIO 14.4 (10-20); CALCIUM 8.4 mg/dl (8.5-10.1); CREATININE 1.2 mg/dl (0.60-1.40)
[2016-07-13] MEDS ORDERED: RXC5 PO (07:27)
--- NOTE | 2016-07-13 07:27 | Discharge Instructions ---
Discharge Instructions Date of Service Jul 13, 2016. Admission Reason for Admission: Lumbar Spinal Stenosis Discharge Discharge Diagnosis / Problem: stenosis Discharge Goals Goal(s): Improve function Activity Recommendations Activity Limitations: per Instructions/Follow-up section . Instructions / Follow-Up Instructions / Follow-Up ACTIVITY RECOMMENDATIONS: SELF CARE INSTRUCTIONS AFTER THORACIC/LUMBAR FUSIONS 1. You may walk to your tolerance. It is good exercise for your legs and back. Expect some back and intermittent leg aches and pains. 2. You may perform "counter-top" level activities (make a sandwich, taylor with a project, etc.). 3. No bending or lifting of more than 10 pounds or back twisting of any nature (roll like a log when turning in bed). 4. You may ride in a car for 20-30 minutes at a time. No driving until after your first visit with your doctor. 5. Frequent changes of position and restricting sitting to 30 minutes at a time will help limit the amount of back spasms and stiffness you may experience. 6. You may discontinue the use of ambulatory aids (cane, crutches, etc.) once your strength and confidence allow. 7. You may belt machine operator the shower and let water strike your incision when you arrive home at least once daily. Do not take a tub bath, sit in a hot tub or go into a swimming pool until after your first recheck in the office. SPECIAL CARE INSTRUCTIONS: VERY IMPORTANT TO READ AND REVIEW A. Your surgical incision has been closed with a cosmetic suture under the skin that will dissolve in about 6 weeks. In 14 days, you can use a pair of clean scissors and cut the suture that is left outside of the skin at the ends of your incision. 1. The small skin tapes can be removed 7 days after surgery if they have not fallen off by that point. 2. You may keep the wound open to air as much as possible to promote healing after post-op day number 5 unless told otherwise by your doctor. 3. If you think the wound looks like it is becoming infected (redness or worsening drainage) and/or you are experiencing fever, chill or worsening back pain and muscle spasms, contact the office so that we may evaluate you as soon as possible. B. Complications are uncommon, but please contact us if you have any signs or symptoms of: 1. wound infection (fever higher than 102.5 degrees F, redness, separation of wound, drainage, or increasing pain from the incision) 2. blood clots in legs (pain, swelling, redness and warmth in legs) 3. urinary tract infection (fever higher than 102.5 degrees F, burning upon urination or increased frequency of urination) 4. nerve problems (inability to walk on your toes or heels, numbness, loss of bowel or bladder control) 5. any other symptoms that concern you C. Please call the office at if you have any concerns or questions about your operation or recovery. D. No smoking! Smoking drastically decreases the chance of a solid fusion. E. Do not take any anti-inflammatory medications (Indocin, Advil, Motrin, Aspirin, Naprosyn, etc.) as these may inhibit the chance of a solid fusion. Tylenol is okay to take for pain. MANAGING PAIN AFTER SPINAL SURGERY 1. Narcotic medication is intended for short-term use and will be provided for surgical pain. Surgical pain usually lasts for a period of 4-6 weeks. Narcotic medication includes Percocet, Vicodin, Darvocet, Tylenol #3 or Lortab. 2. Longer-term pain is more appropriately treated with non-narcotic medication such as Tylenol ES. 3. Muscle spasm is not appropriately treated with narcotics. Muscle relaxers such as Soma, Flexeril or Skelaxin can be used along with Tylenol ES. 4. Remember that we all live with some "aches and pains". This is not unusual or uncommon after an injury or as we get older. a. Back pain is expected and may include muscle spasms for 4 to 6 weeks after surgery. The pain should gradually improve. If the pain worsens for no apparent reason, please contact the office. b. Intermittent leg pain may also be experienced and should not be concerned about unless it worsens for no apparent reason. If so, please contact the office. 5. We will provide appropriate medication within the normal guidelines of their prescribed use. We will also be very cautious and aware of potential abuse and extended duration of patients' medication needs. a. Pain medications are for your comfort and to assist with sleep and rest so that the tissue can heal. They are not provided in order to return to normal activity and should not be used through the day. To do so or worsening pain at night can result from ongoing tissue damage and development of tolerance to the prescribed medicine. 6. Please allow 2-3 days to process refills. Prescriptions will not be mailed but must be picked up at the office. FOLLOW UP VISIT: Keep your scheduled follow-up appointment. Any questions, please call the office at . Current Hospital Diet Patient's current hospital diet: Diabetes Type 2 Diet Discharge Diet Recommended Diet: Regular Diet Procedures Procedures Performed: Transforaminal Lumbar Interbody Fusion L3-L4 Lumbar Decompression/Laminectomy, Discectomy, Placement of Interbody Spacer, Pedicle Screw Fixation, Application of Bone Morphogenetic Protein, and Posteriolateral Gutter Fusion, L3-L5 Hardware Removal, Interbody Fusion with Application of Interbody Cage L3-L4; Ann Pending Studies Studies pending at discharge: no Laboratory Results Hemoglobin A1c Test 07/12/16 15:48 Range/Units Estimated Average Glucose 275 mg/dl Hemoglobin A1c 11.2 H 4.5-5.6 % Medical Emergencies . Who to Call and When: Medical Emergencies: If at any time you feel your situation is an emergency, please call 911 immediately. . Non-Emergent Contact Non-Emergency issues call your: Primary Care Provider . "Provider Documentation" section prepared by Ananda Dutton. VTE Core Measure Inpt VTE Proph given/why not?: Catrina Rangel, SCD's
[2016-07-13] MEDS ORDERED: LISINOPRIL/HCTZ 20/12.5MG TAB PO SCH (09:00)
[2016-07-13] MEDS ORDERED: NURSING VERBAL MED ORDER ONE (09:00)
[2016-07-13] MEDS: INSULIN GLARGINE SOLOSTAR 100 UNITS/ML 3 ML PEN SC SCH ×2 (09:07→21:21)
--- NOTE | 2016-07-13 11:23 | Hospitalist Progress Note ---
Hospitalist Progress Note Date of Service Jul 13, 2016. (Dhara Chiu PA-C) Subjective Pt evaluation today including: conversation w/ patient, physical exam, chart review, lab review, conversation w/ product safety consultant, review of inpatient medication list Patient reports mild to moderate back pain. Has no other complaints. Has not yet passed gas or had a bowel movement. He feels like it is coming soon. Denies any chest pain or dizziness. No heart palpitations. Additional Comments: 6 system review negative. Please see pertinent positives in the history of present illness section. (Dhara Chiu PA-C) Objective Vital Signs Date Time Temp Pulse Resp B/P Pulse Ox O2 Delivery O2 Flow Rate FiO2 07/13/16 09:55 94 Nasal Cannula 2.0 07/13/16 08:38 92 Room Air 07/13/16 08:00 Room Air 07/13/16 08:00 94 Nasal Cannula 2.0 07/13/16 07:40 36.5 82 16 134/66 94 Nasal Cannula 2.0 07/13/16 03:55 36.9 89 16 105/63 94 Nasal Cannula 2.0 07/12/16 23:15 Nasal Cannula 2.0 07/12/16 22:29 36.9 98 18 122/76 97 Nasal Cannula 4.0 07/12/16 19:43 36.3 98 20 117/73 99 Nasal Cannula 4.0 07/12/16 18:25 36.4 95 18 103/63 100 Nasal Cannula 4.0 07/12/16 17:55 97 Nasal Cannula 4.0 07/12/16 17:55 Nasal Cannula 4.0 07/12/16 17:45 90 13 102/63 96 Nasal Cannula 4 07/12/16 17:30 84 13 109/61 95 Nasal Cannula 4 07/12/16 17:15 80 18 107/61 95 Nasal Cannula 4 07/12/16 17:00 76 20 90/57 95 Nasal Cannula 4 07/12/16 16:45 36.2 93 16 104/57 95 Nasal Cannula 4 07/12/16 16:30 89 16 98/53 95 Nasal Cannula 4 07/12/16 16:20 99 21 94/53 94 Nasal Cannula 4 07/12/16 16:10 91 16 100/55 95 Nasal Cannula 4 07/12/16 16:00 98 17 106/49 95 Nasal Cannula 4 07/12/16 15:50 101 23 97/44 93 Nasal Cannula 4 07/12/16 15:40 100 17 94/47 95 Nasal Cannula 4 07/12/16 15:30 79 18 93/54 93 Nasal Cannula 4 07/12/16 15:20 86 16 89/48 94 Nasal Cannula 4 07/12/16 15:10 36.4 87 16 78/45 93 Nasal Cannula 4 07/12/16 15:00 84 17 92/50 93 Nasal Cannula 4 07/12/16 14:50 90 18 88/47 93 Nasal Cannula 4 07/12/16 14:40 83 19 85/46 93 Nasal Cannula 4 07/12/16 14:30 95 18 93/43 93 Nasal Cannula 4 07/12/16 14:20 82 18 91/43 93 Nasal Cannula 4 07/12/16 14:10 92 19 97/47 93 Nasal Cannula 4 07/12/16 14:00 74 17 92/47 94 Nasal Cannula 4 07/12/16 13:50 76 17 90/47 94 Nasal Cannula 4 07/12/16 13:40 87 18 103/49 94 Nasal Cannula 4 07/12/16 13:30 69 18 101/50 92 Nasal Cannula 4 07/12/16 13:20 77 19 101/50 96 Mask 10 07/12/16 13:10 81 18 106/50 98 Mask 10 07/12/16 13:00 76 18 101/47 98 Mask 10 07/12/16 12:54 36.3 87 16 92/54 98 Mask 10 (Dhara Chiu PA-C) Physical Exam General Appearance: no apparent distress Neck: no JVD Respiratory/Chest: lungs clear Cardiovascular: regular rate, rhythm Abdomen: normal bowel sounds, non tender, soft Extremities: non-tender, no pedal edema Neurologic/Psychiatric: no motor/sensory deficits, oriented x 3 Skin: warm/dry (Dhara Chiu PA-C) Laboratory Results 07/13/16 05:03 Red Blood Count 4.60, Mean Corpuscular Volume 82.8, Mean Corpuscular Hemoglobin 29.3, Mean Corpuscular Hemoglobin Concent 35.4, Mean Platelet Volume 10.8, Neutrophils (%) (Auto) 86.0, Lymphocytes (%) (Auto) 9.9, Monocytes (%) (Auto) 3.7, Eosinophils (%) (Auto) 0.1, Basophils (%) (Auto) 0.0, Neutrophils # (Auto) 9.87, Lymphocytes # (Auto) 1.14, Monocytes # (Auto) 0.43, Eosinophils # (Auto) 0.01, Basophils # (Auto) 0.00 07/13/16 05:03 Test 07/12/16 15:45 07/12/16 15:48 07/13/16 05:03 07/13/16 07:56 Beta-Hydroxybutyric Acid 1.26 mg/dL (0.2-2.81) Estimated Average Glucose 275 mg/dl Hemoglobin A1c 11.2 % (4.5-5.6) White Blood Count 11.48 K/uL (4.8-10.8) Red Blood Count 4.60 M/uL (4.7-6.1) Hemoglobin 13.5 g/dL (14.0-18.0) Hematocrit 38.1 % (42-52) Mean Corpuscular Volume 82.8 fL (80-100) Mean Corpuscular Hemoglobin 29.3 pg (25-34) Mean Corpuscular Hemoglobin Concent 35.4 g/dl (32-36) Platelet Count 210 K/uL (130-400) Mean Platelet Volume 10.8 fL (7.4-10.4) Neutrophils (%) (Auto) 86.0 % Lymphocytes (%) (Auto) 9.9 % Monocytes (%) (Auto) 3.7 % Eosinophils (%) (Auto) 0.1 % Basophils (%) (Auto) 0.0 % Neutrophils # (Auto) 9.87 K/uL (1.4-6.5) Lymphocytes # (Auto) 1.14 K/uL (1.2-3.4) Monocytes # (Auto) 0.43 K/uL (0.11-0.59) Eosinophils # (Auto) 0.01 K/uL (0-0.5) Basophils # (Auto) 0.00 K/uL (0-0.2) RDW Standard Deviation 39.6 fL (36.4-46.3) RDW Coefficient of Variation 13.1 % (11.5-14.5) Immature Granulocyte % (Auto) 0.3 % Immature Granulocyte # (Auto) 0.03 K/uL (0.00-0.02) Anion Gap 7.0 mmol/L (3-11) Est Creatinine Clear Calc Drug Dose 106.6 ml/min Estimated GFR () 84.1 Estimated GFR (Non- 72.6 BUN/Creatinine Ratio 14.4 (10-20) Calcium Level 8.4 mg/dl (8.5-10.1) Bedside Glucose 224 mg/dl (70-99) Last 24 Hours Test 07/12/16 11:42 07/12/16 12:54 07/12/16 14:03 07/12/16 14:37 Bedside Glucose 256 mg/dl 301 mg/dl 298 mg/dl 302 mg/dl Test 07/12/16 15:14 07/12/16 15:45 07/12/16 15:48 07/12/16 16:21 Bedside Glucose 305 mg/dl 253 mg/dl Hemoglobin 13.5 g/dL Hematocrit 38.6 % Sodium Level 138 mmol/L Potassium Level 3.5 mmol/L Chloride Level 103 mmol/L Carbon Dioxide Level 26 mmol/L Anion Gap 9.0 mmol/L Blood Urea Nitrogen 19 mg/dl Creatinine 1.90 mg/dl Est Creatinine Clear Calc Drug Dose 67.3 ml/min Estimated GFR () 48.3 Estimated GFR (Non- 41.6 BUN/Creatinine Ratio 10.0 Random Glucose 309 mg/dl Calcium Level 8.5 mg/dl Beta-Hydroxybutyric Acid 1.26 mg/dL Estimated Average Glucose 275 mg/dl Hemoglobin A1c 11.2 % Test 07/12/16 18:16 07/12/16 21:06 07/12/16 23:55 07/13/16 03:56 Bedside Glucose 301 mg/dl 273 mg/dl 313 mg/dl 268 mg/dl Test 07/13/16 05:03 07/13/16 07:56 White Blood Count 11.48 K/uL Red Blood Count 4.60 M/uL Hemoglobin 13.5 g/dL Hematocrit 38.1 % Mean Corpuscular Volume 82.8 fL Mean Corpuscular Hemoglobin 29.3 pg Mean Corpuscular Hemoglobin Concent 35.4 g/dl Platelet Count 210 K/uL Mean Platelet Volume 10.8 fL Neutrophils (%) (Auto) 86.0 % Lymphocytes (%) (Auto) 9.9 % Monocytes (%) (Auto) 3.7 % Eosinophils (%) (Auto) 0.1 % Basophils (%) (Auto) 0.0 % Neutrophils # (Auto) 9.87 K/uL Lymphocytes # (Auto) 1.14 K/uL Monocytes # (Auto) 0.43 K/uL Eosinophils # (Auto) 0.01 K/uL Basophils # (Auto) 0.00 K/uL RDW Standard Deviation 39.6 fL RDW Coefficient of Variation 13.1 % Immature Granulocyte % (Auto) 0.3 % Immature Granulocyte # (Auto) 0.03 K/uL Sodium Level 139 mmol/L Potassium Level 4.0 mmol/L Chloride Level 103 mmol/L Carbon Dioxide Level 29 mmol/L Anion Gap 7.0 mmol/L Blood Urea Nitrogen 17 mg/dl Creatinine 1.20 mg/dl Est Creatinine Clear Calc Drug Dose 106.6 ml/min Estimated GFR () 84.1 Estimated GFR (Non- 72.6 BUN/Creatinine Ratio 14.4 Random Glucose 252 mg/dl Calcium Level 8.4 mg/dl Bedside Glucose 224 mg/dl (Dhara Chiu PA-C) Assessment and Plan 45-year-old male with a history of chronic back pain status post lumbar surgery on 07/12 Lumbar surgery -pain management, DVT prophylaxis, PT per primary team Newly diagnosed diabetes-I would guess probably type II however this is unclear. -C peptide sent -Hemoglobin A1c significantly elevated at 11.2 -Glycemic consult placed: Received Lantus last evening and ISS -Lantus 15 u BID ordered -Discussed case with pharmacy this morning. They're leaning towards patient needing basal insulin at home. I had a long conversation with the patient regarding insulin versus oral agents. He very much is interested in trying diet modification and oral agents as opposed to insulin. After discussing with the patient his diet, I believe he does have significant room for diet modification. He reports being "addicted" to orange juice and drinks over a half gallon daily. He also eats more than a half a loaf of bread daily. -Continue regimen per pharmacy. -Follow up with PCP as an outpatient next week to discuss further options Hypertension -HCTZ/lisinopril on hold due to hypotension. Patient's BP is stable this morning. Likely resume tomorrow We will continue to follow. (Dhara Chiu PA-C) PA Physician Supervision Note: I interviewed and examined the patient. Discussed with Dhara ALDANA and agree with findings and plan as documented in the note. Any exceptions or clarifications are listed here: None Pt is awake and alert, aware of diabetes diagnosis, back pain improved mild residual lle paresthesias vss car is reg lungs clear consideration of oral meds vss basal bolus, maybe SUJIT but pt wants to try oral meds and lifestyle first Documented By: Andrew Ferguson (Andrew Ferguson M.D.)
--- NOTE | 2016-07-13 13:05 | PROGRESS NOTE ---
DATE: 07/13/2016 DATE: 07/13/2016. SUBJECTIVE: Postop day 1. Back pain controlled. Leg pain improved. Vital signs stable. T-max 36.9. ZACH drained 70 mL. Hematocrit this a.m. is 38.1, blood sugar 22.4. PHYSICAL EXAMINATION: The patient is at bedside chair, good strength to testing, appears quite comfortable. ASSESSMENT: Status post lumbar decompression and fusion. PLAN: At this time, will continue physical therapy, advance his bowel regimen and anticipate home possibly tomorrow.
--- NOTE | 2016-07-13 14:47 | Pharmacy Progress Note ---
Glycemic Control: Progress Nt Date of Service Jul 13, 2016. Scope Glycemic Pharmacist consulted by Dr Hennessy on 07/12/16 for glycemic control and to write orders per [facility] inpatient glycemic control protocol. Objective Accuchecks BSG (last 24hrs): Test 07/12/16 14:37 07/12/16 15:14 07/12/16 15:45 07/12/16 16:21 Bedside Glucose 302 mg/dl (70-99) 305 mg/dl (70-99) 253 mg/dl (70-99) Random Glucose 309 mg/dl (70-99) Test 07/12/16 18:16 07/12/16 21:06 07/12/16 23:55 07/13/16 03:56 Bedside Glucose 301 mg/dl (70-99) 273 mg/dl (70-99) 313 mg/dl (70-99) 268 mg/dl (70-99) Test 07/13/16 05:03 07/13/16 07:56 Random Glucose 252 mg/dl (70-99) Bedside Glucose 224 mg/dl (70-99) Laboratory Data (last 24hrs) Test 07/12/16 15:45 07/12/16 15:48 07/13/16 05:03 Anion Gap 9.0 mmol/L 7.0 mmol/L BUN/Creatinine Ratio 10.0 14.4 Blood Urea Nitrogen 19 mg/dl 17 mg/dl Creatinine 1.90 mg/dl 1.20 mg/dl Potassium Level 3.5 mmol/L 4.0 mmol/L Sodium Level 138 mmol/L 139 mmol/L Hemoglobin A1c 11.2 % White Blood Count 11.48 K/uL Red Blood Count 4.60 M/uL Hemoglobin 13.5 g/dL Hematocrit 38.1 % Mean Corpuscular Volume 82.8 fL Mean Corpuscular Hemoglobin 29.3 pg Mean Corpuscular Hemoglobin Concent 35.4 g/dl Platelet Count 210 K/uL Mean Platelet Volume 10.8 fL Neutrophils (%) (Auto) 86.0 % Lymphocytes (%) (Auto) 9.9 % Monocytes (%) (Auto) 3.7 % Eosinophils (%) (Auto) 0.1 % Basophils (%) (Auto) 0.0 % Neutrophils # (Auto) 9.87 K/uL Lymphocytes # (Auto) 1.14 K/uL Monocytes # (Auto) 0.43 K/uL Eosinophils # (Auto) 0.01 K/uL Basophils # (Auto) 0.00 K/uL HbA1c: Test 07/12/16 15:48 Hemoglobin A1c 11.2 % (4.5-5.6) H Recent Pertinent Medications Outpatient Anti-diabetic Regimen: * N/A * A1c = 11.2 % 07/12/16 The patient is currently receiving: * Basal insulin: Lantus 15 units every 12 hours * Correctional Insulin: Novolog Correction per scale ACHS, plus BSG checks overnight Goal Range: Low 120 mg/dL - High 160 mg/dL Correction Factor: 18 mg/dL/unit * Prandial insulin: Per carb ratio of 1 unit per 6 grams CHO consumed Risk Factors for Insulin Resistance: * Steroids: Dexamethasone 6 mg q8h x3, last dose today @1210 * IVF: dc'd * Recent Surgery: POD#1 lumbar fusion * Diet: type 2 diabetic, fairly good appetite Assessment & Plan ASSESSMENT: * ADA & AACE recommend a goal blood sugar range 140-180 mg/dl for the majority of critically ill & non-critically ill patients. However, more stringent targets may be selected in individual cases. * Hgb A1c of 11.2% is diagnostic for diabetes (though patient reports recent course of steroid for pain, which may have elevated A1c somewhat). * Patient used 97 units of insulin yesterday. BSG's ranged 224-313 mg/dl. Started scheduled Lantus and tightened correction and carb ratio. Would expect insulin needs to decrease as effect of dexamethasone wears off. Will continue overnight BSG's, and reassess in am. PLAN FOR INPATIENT GLYCEMIC CONTROL: * Increasing Lantus to 15 units SQ BID * Changing correction factor to 15 mg/dl/unit * Changing carb ratio to 1 unit per 5 grams CHO consumed * Continuing goal range Low 120 mg/dL - High 160 mg/dL RECOMMENDATIONS FOR DISCHARGE: * Per DEEDEE Figueredo, patient has agreed to significant lifestyle/diet changes , and starting metformin. He will need close followup with outpatient provider, and I would have a low threshold for starting Lantus 5-10 units daily, but hold dose if BSG is less than 100. * Please note that the plan above was derived based on current level of insulin resistance and hospital stress. These recommendations are appropriate for inpatient admission only. Plan of care upon discharge will need to be reassessed to avoid potential outpatient hypo/hyperglycemia. Thank you.
[2016-07-13] MEDS: DOCUSATE SODIUM/SENNA 50/8.6MG TAB PO SCH (21:16)
[2016-07-14] MEDS: INSULIN ASPART 100 UNITS/ML 3 ML PEN SC SCH ×4 (00:19→12:40)
[2016-07-14] MEDS: POLYETHYLENE (MIRALAX) 17 GM PACK PO SCH ×2 (05:09→12:00)
[2016-07-14 07:05] VITALS: BP 142/83; PULSE 77; TEMP 36.6; O2SAT 96
[2016-07-14 07:34] VITALS: BP 104/60; PULSE 70; TEMP 36.6; O2SAT 97
[2016-07-14 08:25] VITALS: BP 104/60; PULSE 70; O2SAT 97
[2016-07-14] MEDS: INSULIN GLARGINE SOLOSTAR 100 UNITS/ML 3 ML PEN SC SCH (09:34)
[2016-07-14] MEDS ORDERED: GLIP5TAB11 PO (10:16)
[2016-07-14] MEDS ORDERED: METF1000 PO (10:16)
[2016-07-14 10:33] VITALS: BP 104/60; PULSE 70; TEMP 36.6; O2SAT 97
--- NOTE | 2016-07-14 10:35 | DISCHARGE SUMMARY ---
DATE OF DISCHARGE: 07/14/2016. PREOPERATIVE DIAGNOSIS: Spinal stenosis. HOSPITAL COURSE FOLLOWS: On 07/12/2016 the patient underwent lumbar decompression and fusion, tolerated this well and taken to the orthopedic floor postoperatively. Postop day #1, he was up and ambulatory and progressed to postop day #2. Pain well controlled. Subsequently discharged home. He is being discharged home with his drain. Will follow up on Saturday for removal.
--- NOTE | 2016-07-14 14:03 | Progress Note ---
Subjective Date of Service: Jul 14, 2016. Subjective this pt wants to try oral medication and lifestyle modification before committing to insulin at home, he understands that it may not work, he will test his blood sugar and follow up with his pcp this week he will call if > 300 on two subsequent checks Problem List Medical Problems: (1) Left-sided low back pain with left-sided sciatica Status: Acute (2) Strain of lumbar region Status: Acute Review of Systems Constitutional: No chills, No fever Respiratory: No cough, No dyspnea on exertion, No shortness of breath Cardiac: No chest pain, No edema Abdomen: No diarrhea, No nausea, No pain, No vomiting Musculoskeletal: + muscle pain, No joint pain, No swelling Male : No dysuria, No urinary frequency Objective Vital Signs Date Time Temp Pulse Resp B/P Pulse Ox O2 Delivery O2 Flow Rate FiO2 07/14/16 10:33 36.6 70 16 97 Room Air 07/14/16 08:25 70 97 07/14/16 07:50 Room Air 07/14/16 07:05 36.6 77 16 142/83 96 Room Air 07/13/16 23:00 36.5 64 16 121/74 96 Room Air 07/13/16 19:29 Room Air 07/13/16 14:55 37.1 76 16 125/70 95 Room Air Physical Exam General Appearance: WD/WN, + mild distress Eyes: PERRL, EOMI Neck: supple, trachea midline Neurologic/Psychiatric: alert, oriented x 3 Skin: normal color, warm/dry, no rash Laboratory Results Last 24 Hours Test 07/13/16 16:51 07/13/16 20:28 07/14/16 00:05 07/14/16 04:03 Bedside Glucose 293 mg/dl 289 mg/dl 168 mg/dl 196 mg/dl Test 07/14/16 05:09 07/14/16 07:55 07/14/16 12:31 Bedside Glucose 181 mg/dl 140 mg/dl Assessment and Plan Pt with lumbar spine surgery found to have Hgb a1c 11, was on insulin with teaching but stronly wants to try oral meds before committing to basal bolus, maybe SUJIT but pt wants to try oral meds and lifestyle first. agrees to glucometer checks and follow up Documented By: Andrew Ferguson
== END 2016-07-14 13:10 | disposition home or self-care (01) | DRG 460 ==
LOC: ENRESERVTM → ENRESERV → CANRESERV → ENRESERVDT → C.ACU 08:08 → C.3E 09:00 → CANBEDREQ 15:40
PROVIDERS: ADMIT Orthopaedic Surgery Orthopaedic Surgery of the Spine; ATTEND Orthopaedic Surgery Orthopaedic Surgery of the Spine
PROC: 0SG0071 Fusion of Lumbar Vertebral Joint with Autologous Tissue Substitute, Posterior Approach, Posterior Column, Open Approach (ICD-10-PCS; principal; 2016-07-12 10:15)
PROC: 3E0U0GB Introduction of Recombinant Bone Morphogenetic Protein into Joints, Open Approach (ICD-10-PCS; principal; 2016-07-12 10:15)
PROC: 0SG00AJ Fusion of Lumbar Vertebral Joint with Interbody Fusion Device, Posterior Approach, Anterior Column, Open Approach (ICD-10-PCS; principal; 2016-07-12 10:15)
PROC: 0SP004Z Removal of Internal Fixation Device from Lumbar Vertebral Joint, Open Approach (ICD-10-PCS; principal; 2016-07-12 10:15)
PROC: 0ST20ZZ Resection of Lumbar Vertebral Disc, Open Approach (ICD-10-PCS; principal; 2016-07-12 10:15)
DX: M48.06 Spinal stenosis, lumbar region (principal); M96.0 Pseudarthrosis after fusion or arthrodesis; Y83.2 Surgical operation with anastomosis, bypass or graft as the cause of abnormal reaction of the patient, or of later complication, without mention of misadventure at the time of the procedure; E11.65 Type 2 diabetes mellitus with hyperglycemia; T38.0X5A Adverse effect of glucocorticoids and synthetic analogues, initial encounter; I95.9 Hypotension, unspecified; E86.9 Volume depletion, unspecified; R20.9 Unspecified disturbances of skin sensation; I10 Essential (primary) hypertension; E66.9 Obesity, unspecified; Z68.39 Body mass index [BMI] 39.0-39.9, adult; Z98.1 Arthrodesis status; Z79.891 Long term (current) use of opiate analgesic; Z79.899 Other long term (current) drug therapy